=== PATIENT | male | born 1990 | race Caucasian/White ===

== ENCOUNTER 2021-07-11 10:36 | Emergency (ER) | payer OTHER ==
[2021-07-11] MEDS ORDERED: ISENTRESS PO (11:57)
[2021-07-11] MEDS ORDERED: TRUVADA 200 MG1 EACH PO (11:57)
[2021-07-12 03:09] LABS: HIV SCREEN 4TH GENERATION WRFX Non Reactive (Non Reactive)
[2021-07-12 09:14] LABS: HBSAG SCREEN Negative (Negative); HEP A AB, IGM Negative (Negative); HEP B CORE AB, IGM Negative (Negative); HEP C VIRUS AB <0.1 (0.0-0.9)
== END 2021-07-11 11:22 | disposition home or self-care (01) ==
LOC: ER1 10:36
PROVIDERS: Emergency Medicine
DX: S69.92XA Unspecified injury of left wrist, hand and finger(s), initial encounter (principal); W46.1XXA Contact with contaminated hypodermic needle, initial encounter
CPT/HCPCS: 80074; 87389; 99283

== ENCOUNTER 2021-08-28 11:35 | Emergency (ER) | payer OTHER ==
[~2021-08-28 11:35] MED LIST: ISENTRESS PO; TRUVADA 200 MG1 EACH PO
[2021-08-29 08:14] LABS: HIV SCREEN 4TH GENERATION WRFX Non Reactive (Non Reactive)
[2021-08-29 10:14] LABS: HBSAG SCREEN Negative (Negative); HEP A AB, IGM Negative (Negative); HEP B CORE AB, IGM Negative (Negative); HEP C VIRUS AB <0.1 (0.0-0.9)
== END 2021-08-28 11:52 | disposition home or self-care (01) ==
LOC: ER1 11:35
PROVIDERS: Physician Assistant
DX: T14.8XXA Other injury of unspecified body region, initial encounter (principal); Z88.1 Allergy status to other antibiotic agents
CPT/HCPCS: 80074; 87389; 99283

== ENCOUNTER → 2021-10-02 | Outpatient (CLI) | payer SELFPAY | LOC: HEART 5 14:00 | DX: R00.2 Palpitations (principal); R06.02 Shortness of breath ==

== ENCOUNTER 2021-10-09 16:01 | Emergency (ER) | payer SELFPAY ==
[2021-10-09 16:39] LABS: HEMOGLOBIN 15.8 gm/dl (14.0-17.5); RED BLOOD COUNT 5.08 M/UL (4.20-5.50); WHITE BLOOD COUNT 7.7 K/UL (4.5-11.0)
[2021-10-09 17:06] LABS: BUN/CREATININE RATIO 15 (0-10)
[2021-10-09] MEDS ORDERED: METOPROLOL TART25 MG PO (17:50)
== END 2021-10-09 18:05 | disposition home or self-care (01) ==
LOC: ER1 16:01
PROVIDERS: Emergency Medicine; Family Medicine
DX: R00.2 Palpitations (principal); I48.91 Unspecified atrial fibrillation; R03.0 Elevated blood-pressure reading, without diagnosis of hypertension; Z88.5 Allergy status to narcotic agent
CPT/HCPCS: 71045; 80048; 80307; 81001; 82550; 82553; 82962; 83735; 83874; 84439; 84443; 84484; 85025; 93005; 96374; 96376; 99285; J1885

== ENCOUNTER → 2021-10-18 | Outpatient (CLI) | payer SELFPAY ==
[~2021-10-18] MED LIST changes: +METOPROLOL TART25 MG PO
== END ==
LOC: HEART 5 10-16 09:30
DX: I48.91 Unspecified atrial fibrillation (principal); I51.7 Cardiomegaly
CPT/HCPCS: 93306

== ENCOUNTER → 2021-10-31 | Outpatient (CLI) | payer SELFPAY ==
[2021-11-01 08:15] LABS: CHOLESTEROL, TOTAL 159 mg/dL (100-199); HDL CHOLESTEROL 46 mg/dL (>39); LDL CHOLESTEROL CALC 99 mg/dL (0-99); LDL/HDL RATIO 2.2 ratio (0.0-3.6); T. CHOL/HDL RATIO 3.5 ratio (0.0-5.0); TRIGLYCERIDES 72 mg/dL (0-149); TSH 0.566 uIU/mL (0.450-4.500)
== END ==
LOC: LAB 12:23
PROVIDERS: Internal Medicine Cardiovascular Disease
DX: I48.91 Unspecified atrial fibrillation (principal); R00.2 Palpitations; R07.9 Chest pain, unspecified
CPT/HCPCS: 36415; 80061; 84439; 84443; 84481